=== PATIENT | male | born 1950 | race American Indian/Alaskan Native ===

== ENCOUNTER 2017-05-26 18:40 | Emergency (ER) | payer MEDICARE ==
[2017-05-26 20:15] LABS: Basophils # (Auto) 0.1 K/mm3 (0.0-0.1); Basophils % (Auto) 1.5 % (0.0-1.8); Eosinophils % (Auto) 0.9 % (0.0-4.3); Hemoglobin 15.2 gm/dl (11.8-15.2); Lymphocytes # (Auto) 1.6 K/mm3 (1.2-5.4); Lymphocytes % (Auto) 30.2 % (13.4-35.0); Mean Corpuscular HGB Conc 34 % (32-34); Mean Corpuscular Hemoglobin 28 pg (28-32); Mean Corpuscular Volume 82 fl (84-94); Monocytes # (Auto) 0.4 K/mm3 (0.0-0.8); Monocytes % (Auto) 7.2 % (0.0-7.3); Platelet Count 239 K/mm3 (140-440); Red Blood Count 5.48 M/mm3 (3.65-5.03); Red Cell Distribution Width 13.9 % (13.2-15.2)
[2017-05-26 20:26] LABS: BUN/Creatinine Ratio 9; Blood Urea Nitrogen 7 mg/dL (9-20); Calcium 9.6 mg/dL (8.4-10.2); Hemolysis Index 6
[2017-05-27] MEDS ORDERED: HCTZ PO ONE (01:35)
[2017-05-27] MEDS ORDERED: COZAAR PO ONE (01:35)
--- NOTE | 2017-05-27 01:43 | Emergency Department Report ---
ED General Adult HPI - General Chief complaint: BP Check / Ring removal req Stated complaint: HYPERTENSIVE Time Seen by Provider: 05/27/17 00:56 Source: patient Mode of arrival: Ambulatory Limitations: No Limitations - History of Present Illness Initial comments: Presents to the ER for high blood pressure. For the past couple days, patient has been battling flu like symptoms. So, he stopped taking his blood pressure medications. Afterwards, he noticed that his blood pressure was high. He never had any symptoms. The patient resumed taking his blood pressure medication over the past couple days, but his blood pressure still high. So, he came to the ER for evaluation. Patient states that he has intermittent compliance with his anti-hypertensive medication. Denies chest pain, shortness of breath, headache, numbness, paresthesias, visual changes. Associated Symptoms: denies other symptoms - Related Data Previous Rx's Medication Instructions Recorded Last Taken Type Hydrochlorothiazide [Hctz] 12.5 mg PO QDAY #15 capsule 05/27/17 Unknown Rx Allergies Allergy/AdvReac Type Severity Reaction Status Date / Time No Known Allergies Allergy Unverified 05/26/17 19:51 ED Review of Systems ROS: Stated complaint: HYPERTENSIVE Other details as noted in HPI Constitutional: denies: chills, fever Eyes: denies: eye pain, eye discharge, vision change ENT: denies: ear pain, throat pain Respiratory: denies: cough, shortness of breath, wheezing Cardiovascular: denies: chest pain, palpitations Endocrine: no symptoms reported Gastrointestinal: denies: abdominal pain, nausea, diarrhea Genitourinary: denies: urgency, dysuria Musculoskeletal: denies: back pain, joint swelling, arthralgia Skin: denies: rash, lesions Neurological: denies: headache, weakness, paresthesias Psychiatric: denies: anxiety, depression Hematological/Lymphatic: denies: easy bleeding, easy bruising ED Past Medical Hx - Past Medical History Previous Medical History?: Yes Hx Hypertension: Yes - Surgical History Past Surgical History?: No - Social History Smoking Status: Former Smoker Substance Use Type: Alcohol, Marijuana - Medications Home Medications: Home Medications Medication Instructions Recorded Confirmed Last Taken Type Hydrochlorothiazide [Hctz] 12.5 mg PO QDAY #15 capsule 05/27/17 Unknown Rx ED Physical Exam - General Limitations: No Limitations General appearance: alert, in no apparent distress - Head Head exam: Present: atraumatic, normocephalic - Eye Eye exam: Present: normal appearance (bilateral arcus senilis) - ENT ENT exam: Present: mucous membranes moist - Neck Neck exam: Present: normal inspection - Respiratory Respiratory exam: Present: normal lung sounds bilaterally. Absent: respiratory distress - Cardiovascular Cardiovascular Exam: Present: regular rate, normal rhythm. Absent: systolic murmur, diastolic murmur, rubs, gallop - GI/Abdominal GI/Abdominal exam: Present: soft, normal bowel sounds - Rectal Rectal exam: Present: deferred - Extremities Exam Extremities exam: Present: normal inspection - Back Exam Back exam: Present: normal inspection - Neurological Exam Neurological exam: Present: alert, oriented X3 - Psychiatric Psychiatric exam: Present: normal affect, normal mood - Skin Skin exam: Present: warm, dry, intact, normal color. Absent: rash ED Course Vital Signs 05/26/17 05/27/17 05/27/17 19:52 00:21 00:30 Temperature 98.8 F 98.4 F Pulse Rate 80 74 72 Respiratory 20 15 15 Rate Blood Pressure 180/105 163/94 Blood Pressure 182/99 [Left] O2 Sat by Pulse 98 99 98 Oximetry 05/27/17 05/27/17 05/27/17 00:45 01:00 01:30 Temperature Pulse Rate 72 76 73 Respiratory 15 16 15 Rate Blood Pressure 163/94 165/95 176/103 Blood Pressure [Left] O2 Sat by Pulse 97 97 99 Oximetry 05/27/17 05/27/17 01:51 02:00 Temperature Pulse Rate 71 80 Respiratory 17 Rate Blood Pressure 175/102 171/97 Blood Pressure [Left] O2 Sat by Pulse 99 Oximetry ED Medical Decision Making - Lab Data Result diagrams: 05/26/17 20:05 05/26/17 20:05 Vital Signs 05/26/17 05/27/17 05/27/17 19:52 00:21 00:30 Temperature 98.8 F 98.4 F Pulse Rate 80 74 72 Respiratory 20 15 15 Rate Blood Pressure 180/105 163/94 Blood Pressure 182/99 [Left] O2 Sat by Pulse 98 99 98 Oximetry 05/27/17 05/27/17 05/27/17 00:45 01:00 01:30 Temperature Pulse Rate 72 76 73 Respiratory 15 16 15 Rate Blood Pressure 163/94 165/95 176/103 Blood Pressure [Left] O2 Sat by Pulse 97 97 99 Oximetry 05/27/17 05/27/17 01:51 02:00 Temperature Pulse Rate 71 80 Respiratory 17 Rate Blood Pressure 175/102 171/97 Blood Pressure [Left] O2 Sat by Pulse 99 Oximetry - EKG Data -: EKG Interpreted by Me EKG shows normal: sinus rhythm, axis, intervals, QRS complexes, ST-T waves Rate: normal - Medical Decision Making 67-year-old male with past medical history of hypertension that presents with asymptomatic hypertension. Patient was initially with a systolic blood pressure 180 on presentation. This improved to 160 without intervention. Screening lab work and EKG were unremarkable. Patient remaining asymptomatic in the ER. I gave the patient extra dose of his losartan hydrochlorothiazide in the ER. I stressed on the importance of being compliant with his home medication. He has a follow-up appointment with his primary care doctor next week. The patient will start tracking his blood pressure daily and report the findings to his primary care physician. Return precautions have been discussed. Cleared for discharge. Critical care attestation.: If time is entered above; I have spent that time in minutes in the direct care of this critically ill patient, excluding procedure time. ED Disposition Clinical Impression: Hypertension Disposition: [id number] TO HOME OR SELFCARE Is pt being admited?: No Condition: Stable Instructions: Hypertension (ED) Additional Instructions: Please follow up with your family doctor next week. Take your blood pressure once a day for the next 3 days. If your blood pressure is higher than 170/90, then take an extra dose of your losartan. If you have to do this consistently, please follow up with your family doctor for an adjustment to your medication. If you develop chest pain, shortness of breath, and/or persistent headache, please return to the ER for re-evaluation. Prescriptions: Hydrochlorothiazide [Hctz] 12.5 mg PO QDAY #15 capsule Referrals: LEATHA HERRERA MD [Primary Care Provider] - 3-5 Days
[2017-05-27 03:22] VITALS: BP 162/92
== END 2017-05-27 03:38 | disposition home or self-care (01) ==
LOC: ED 18:40
DX: I10 Essential (primary) hypertension (principal)
CPT/HCPCS: 36415; 80048; 84484; 85025; 93005; 93010